=== PATIENT | male | born 1985 | race African-American/Black ===

== ENCOUNTER 2024-06-24 17:53 | Emergency (ER) | payer SELFPAY ==
[2024-06-24 18:15] VITALS: BP 112/75; PULSE 89; RESP 18; TEMP 98.8; BMI 23.4
== END 2024-06-24 18:35 | disposition left against medical advice (07) ==
LOC: JERFT 17:53
DX: Z53.21 Procedure and treatment not carried out due to patient leaving prior to being seen by health care provider (principal)
CPT/HCPCS: 99281-25

== ENCOUNTER 2024-07-02 22:33 | Emergency (ER) | payer OTHER ==
[2024-07-02 22:40] VITALS: BP 124/70; PULSE 61; RESP 18; TEMP 98.4; BMI 23.1
[2024-07-02] MEDS: METOCLOPRAMIDE HCL INJECTION 10 MG/2 ML VIAL IVPUSH ONE (23:36)
[2024-07-02] MEDS: ACETAMINOPHEN 1000 MG/100 ML BAG IVPB ONE (23:36)
[2024-07-02] MEDS: LACTATED RINGERS SOLUTION 1,000 ML/1,000 ML INFUS.BAG IV SCH (23:36)
[2024-07-02 23:39] LABS: BASO % 1.2 % (0-2.0); EOS % 4.3 % (0-4.5); HEMATOCRIT 43.1 % (35.4-49); HEMOGLOBIN 14.2 GM/dL (11.7-16.9); LYMPH % 41.7 % (8-40); MCH 29.7 pg (25.7-33.7); MCHC 32.9 g/dl (32.0-35.9); MEAN CELL VOLUME 90.3 fl (80-96); MEAN PLT VOLUME 7.1 fl (7.5-11.1); MONO % 4.7 % (3.8-10.2); NEUT % 48.1 % (42.8-82.8); PLATELET COUNT 286 10^3/uL (134-434); RBC 4.77 M/mm3 (4.00-5.60); RDW 13.3 % (11.9-15.9); WHITE BLOOD COUNT 6.1 K/mm3 (4.0-10.0)
[2024-07-02] MEDS ORDERED: IBUPROFEN 600 MG TABLET (FP) PO ONE (23:57)
[2024-07-02] MEDS: IBUPROFEN 600 MG TABLET (FP) PO ONE (23:59)
[2024-07-03 00:35] LABS: POTASSIUM 4.5 mmol/L (3.5-5.1)
[2024-07-03 00:36] LABS: CALCIUM 9.7 mg/dL (8.5-10.1)
[2024-07-03 00:37] LABS: ALBUMIN 4.1 g/dl (3.4-5.0); BLOOD UREA NITROGEN 14.2 mg/dL (7-18)
[2024-07-03 00:40] LABS: CREATININE 1.2 mg/dL (0.55-1.3)
[2024-07-03 00:41] LABS: TOT PROT 7.4 g/dl (6.4-8.2)
[2024-07-03 00:49] LABS: BILIRUBIN,TOTAL 0.4 mg/dL (0.2-1)
== END 2024-07-03 01:45 | disposition home or self-care (01) ==
LOC: JER 22:33
DX: R51.9 Headache, unspecified (principal); H53.149 Visual discomfort, unspecified; H93.11 Tinnitus, right ear
CPT/HCPCS: 36415; 70450-TC; 80053; 85025; 99284-25